=== PATIENT | female | born 1995 | race Caucasian/White ===

== ENCOUNTER 2018-10-23 07:22 | Emergency (ER) | payer SELFPAY ==
[~2018-10-23] VITALS: Ht 170.2 cm; Wt 114.8 kg
--- NOTE | 2018-10-23 07:22 | NUR ---
BIBRA 77, W C/O MIDSTERNAL CHEST PAIN RADIATES TO L SIDE OF CHEST AND L JAW SINCE 6AM TODAY , TO ER BED 3, HOOKED TO MONITOR, CHANGED TO DR CELESTINA PANIAGUA AT BEDSIDE FOR EVAL
[2018-10-23] MEDS ORDERED: LORAZEPAM 1 MG TABLET PO ONE (07:30)
[2018-10-23] MEDS ORDERED: LORAZEPAM 1 MG TABLET ONE (07:37)
--- NOTE | 2018-10-23 08:44 | NUR ---
PT AT SINUS TACHYCARDIA AT 182BPM, MADE MD AWARE, RECEIVED VERBAL ORDER OF ATIVAN 1MG IV. CARRIED OUT.
[2018-10-23] MEDS ORDERED: LORAZEPAM INJ 2 MG/ML VIAL ONE ×2 (08:45→09:26)
[2018-10-23] MEDS ORDERED: LORAZEPAM INJ 2 MG/ML VIAL IV ONE ×2 (09:00→09:30)
--- NOTE | 2018-10-23 09:32 | NUR ---
PT IN BED, ANXIOUS, HYPERVENTILATING. HOOKED TO MONITOR, KEPT SAFE. RELAXING MEASURES PROVIDED.
--- NOTE | 2018-10-23 09:50 | NUR ---
PCP SPEAKING WITH DR OSCAR.
--- NOTE | 2018-10-23 10:12 | NUR ---
Patient discharged to home in stable condition. Written and verbal after care instructions given. Patient verbalizes understanding of instruction.
[2018-10-23 10:20] VITALS: BP 136/67
== END 2018-10-23 10:15 | disposition home or self-care (01) ==
LOC: ER 07:22
DX: F41.0 Panic disorder [episodic paroxysmal anxiety] (principal); I47.1 Supraventricular tachycardia; Z88.8 Allergy status to other drugs, medicaments and biological substances
CPT/HCPCS: 36415; 71045; 84484; 93005; 96374; 96376; 99284; J2060 ×2